=== PATIENT | female | born 1980 | race Two or more races ===

== ENCOUNTER 2023-05-15 19:11 | Emergency (ER) | payer OTHER, SELFPAY ==
--- NOTE | 2023-05-15 | ECG_ITS ---
Test Reason : CHEST PAIN Blood Pressure : / mmHG Vent. Rate : 075 BPM Atrial Rate : 075 BPM P-R Int : 146 ms QRS Dur : 074 ms QT Int : 394 ms P-R-T Axes : 047 013 029 degrees QTc Int : 439 ms Normal sinus rhythm Normal ECG No previous ECGs available Referred By: Generic ED Physician Electronically Signed By:KATHY MARRERO MD
[2023-05-15 19:20] VITALS: BP 124/67; PULSE 82; RESP 20; TEMP 36.4; O2SAT 98; BMI 26.6
[2023-05-15 20:26] LABS: Hematocrit 38.8 % (37.0-47.0); Hemoglobin 12.8 g/dl (12.0-16.0); Mean Corpuscular Hemoglobin 29.7 pg (27.0-33.0); Mean Platelet Volume 11.9 fL (9.4-12.3); Platelet Count 201 X10*3/uL (160-400); Red Blood Count 4.31 X10*6/uL (4.20-5.50); White Blood Count 7.9 X10*3/uL (4.8-10.8)
[2023-05-15 20:44] LABS: Alanine Aminotransferase 16 U/L (0-31); Albumin Level 3.9 g/dL (3.5-5.0); Alkaline Phosphatase 71 U/L (39-117); Anion Gap 12 (12-20); Aspartate Amino Transferase 18 U/L (5-31); Bilirubin Total 0.4 mg/dL (0.0-1.0); Blood Urea Nitrogen 13 mg/dL (9-16); Calcium 9.1 mg/dL (8.4-10.2); Carbon Dioxide 27 mmol/L (22-29); Chloride 106 mmol/L (96-108); Creatinine Clr Calc Pharmacy 90.1; Estimated Glomerular Filt Rate > 60; Glucose Random 95 mg/dL (60-115); Potassium 3.7 mmol/L (3.3-5.1); Sodium 141 mmol/L (135-145); Total Protein 7.1 g/dL (6.5-8.0)
[2023-05-15 20:51] LABS: Troponin-I High Sensitivity < 2.7 ng/L (<3.5-17.0)
[2023-05-15 21:19] LABS: Influenza A PCR NEGATIVE (Negative); Influenza B PCR NEGATIVE (Negative); Resp Syncy Virus RNA Qual PCR NEGATIVE (Negative); SARS COV2 PCR INHOUSE NEGATIVE (Negative)
[2023-05-15 21:21] VITALS: BP 125/73; PULSE 79; RESP 18; O2SAT 100
[2023-05-15 22:07] VITALS: BP 119/58; PULSE 61; RESP 17; O2SAT 98
--- NOTE | 2023-05-15 22:27 | ED_ITS ---
HPI - General Adult General Chief complaint: General Medical Stated complaint: runny nose, chest pain Time Seen by Provider: 05/15/23 22:19 Source: patient Mode of arrival: ambulatory Limitations: no limitations History of Present Illness HPI narrative: Patient with History of mild asthma complaining of running nose cough body aches for last 10 days no fever no chills no vomiting. No other family member sick Related Data Previous Rx's Medication Instructions Recorded albuterol sulfate 90 mcg/actuation 2 puff inhalation Q4-6H PRN 05/15/23 aerosol inhaler (ProAir HFA) shortness of breath or wheezing #8.5 grams amoxicillin 875 mg-potassium 1 tab PO BID #20 tabs 05/15/23 clavulanate 125 mg tablet prednisone 20 mg tablet 40 mg (2 x 20 mg) PO DAILY #10 tabs 05/15/23 Allergies Allergy/AdvReac Type Severity Reaction Status Date / Time No Known Allergies Allergy Verified 05/15/23 19:24 Review of Systems 2 Review of Systems: Yes all other systems are reviewed and are negative [facility] Social History Social History Smoked in Last 30 Days: No Use of substances other than those prescribed or required for medical reasons: No Advance Directives: No Advance Directives Information Provided: No Patient : No Physical Exam ED Vital Signs: Vital Signs - 24 hr 05/15/23 19:20 05/15/23 21:21 05/15/23 22:07 Temperature 97.5 F Pulse Rate 82 79 61 Respiratory Rate 20 18 17 Blood Pressure 124/67 125/73 119/58 L Pulse Oximetry 98 100 98 Oxygen Delivery Method Room Air Room Air Room Air BMI result Body Mass Index 26.6 Appearance: Alert. Oriented X3. No acute distress. ENT: Pharynx normal. Oral Mucosa moist frontal sinus tenderness Neck: Normal inspection. Neck supple. CVS: Normal heart rate and rhythm. Pulses normal. Respiratory: No respiratory distress. Equal air entry bilateral, bilateral prolonged expiration no crackle Abdomen: Soft and nontender. Skin: Skin warm and dry. Normal skin color. Normal skin turgor. Extremities: No lower extremity edema. No calf tenderness Neuro: Oriented X 3. Medications Administered Discontinued Medications Generic Name Dose Route Start Last Admin Trade Name Freq PRN Reason Stop Dose Admin Albuterol Sulfate 2 puff 05/15/23 23:16 05/15/23 23:34 Albuterol Sulfate 90 Mcg 8 Gm Inhaler INHALE 05/15/23 23:17 2 puff ONCE ONE Administration Amoxicillin/Clavulanate Potassium 875 mg 05/15/23 23:16 05/15/23 23:23 Amoxicillin/Potassium Clav 875 Mg Tablet PO 05/15/23 23:17 875 mg ONCE ONE Administration Prednisone 60 mg 05/15/23 23:16 05/15/23 23:22 Prednisone 20 Mg Tablet PO 05/15/23 23:17 60 mg ONCE ONE Administration Medical Decision Making Differential Diagnosis Differential Diagnoses: The differential diagnosis associated with the presentation includes Sinusitis/bronchitis/pneumonia/asthma Admission/Observation Consideration of admission/observation: Escalation of care including admission/observation considered Lab Data MDM Lab Attestation statement: I reviewed the patient's lab results. 05/15/23 20:15 05/15/23 20:15 Labs: Lab Results 05/15/23 Range/Units 20:15 WBC 7.9 (4.8-10.8) X10*3/uL RBC 4.31 (4.20-5.50) X10*6/uL Hgb 12.8 (12.0-16.0) g/dl Hct 38.8 (37.0-47.0) % MCV 90.0 (80.0-98.0) fL MCH 29.7 (27.0-33.0) pg MCHC 33.0 (31.0-35.0) g/dl RDW 13.0 (11.0-16.0) % Plt Count 201 (160-400) X10*3/uL MPV 11.9 (9.4-12.3) fL Absolute Nucleated RBC 0.000 (0.0-0.012) X10*3/uL Nucleated RBC % (auto) 0.0 (0.0-0.2) /100WBC Sodium 141 (135-145) mmol/L Potassium 3.7 (3.3-5.1) mmol/L Chloride 106 (96-108) mmol/L Carbon Dioxide 27 (22-29) mmol/L Anion Gap 12 (12-20) BUN 13 (9-16) mg/dL Creatinine 0.79 (0.5-1.4) mg/dL Estim Creat Clear Calc 90.1 Estimated GFR > 60 Random Glucose 95 (60-115) mg/dL Calcium 9.1 (8.4-10.2) mg/dL Total Bilirubin 0.4 (0.0-1.0) mg/dL AST 18 (5-31) U/L ALT 16 (0-31) U/L Alkaline Phosphatase 71 (39-117) U/L Troponin I High Sens < 2.7 (<3.5-17.0) ng/L Total Protein 7.1 (6.5-8.0) g/dL Albumin 3.9 (3.5-5.0) g/dL Influenza Type A (PCR) NEGATIVE (Negative) Influenza Type B (PCR) NEGATIVE (Negative) RSV RNA Qual (PCR) NEGATIVE (Negative) SARS-CoV-2 RNA (RT-PCR) NEGATIVE (Negative) Discharge Plan Discharge Clinical Impression: Acute bronchitis Patient Disposition: Home, Self-Care Instructions: Acute Bronchitis (ED) Additional Instructions: Take antibiotic As prescribed Prednisone as prescribed Use albuterol inhaler 2 puffs every 4-6 hours as needed Follow-up with PCP if not better Prescriptions: New prednisone 20 mg tablet 40 mg PO DAILY Qty: 10 0RF albuterol sulfate [ProAir HFA] 90 mcg/actuation HFA aerosol inhaler 2 puff inhalation Q4-6H PRN (Reason: shortness of breath or wheezing) Qty: 8.5 0RF amoxicillin-pot clavulanate 875-125 mg tablet 1 tab PO BID Qty: 20 0RF Interventions: ED Discharge Assessment Last Done: 05/15/23 23:38
[2023-05-15] MEDS: predniSONE 20 MG TABLET 60 MG PO (23:22)
[2023-05-15] MEDS: Amoxicillin/Potassium Clav 875 MG TABLET PO (23:23)
[2023-05-15] MEDS: Albuterol Sulfate 90 MCG 8 GM INHALER 2 PUFF INHALE (23:34)
[2023-05-15 23:36] VITALS: BP 124/70; PULSE 82; RESP 14; O2SAT 98
== END 2023-05-15 23:42 | disposition home or self-care (01) ==
PROVIDERS: Emergency Provider Internal Medicine
DX: J20.9 Acute bronchitis, unspecified (principal); R09.89 Other specified symptoms and signs involving the circulatory and respiratory systems; M79.10 Myalgia, unspecified site; R05.9 Cough, unspecified; Z20.822 Contact with and (suspected) exposure to COVID-19; Z20.828 Contact with and (suspected) exposure to other viral communicable diseases; Z79.899 Other long term (current) drug therapy
CPT/HCPCS: 0241U; 36415; 80053; 84484; 85027; 93005; 99284

== ENCOUNTER 2024-09-14 21:11 | Emergency (ER) | payer OTHER, SELFPAY ==
[2024-09-14 21:45] VITALS: BP 122/73; PULSE 60; RESP 16; TEMP 36.7; O2SAT 99; BMI 33.2
[2024-09-14 22:49] LABS: Influenza A PCR NEGATIVE (Negative); Influenza B PCR NEGATIVE (Negative); Resp Syncy Virus RNA Qual PCR NEGATIVE (Negative); SARS COV2 PCR INHOUSE NEGATIVE (Negative)
[2024-09-15 03:13] VITALS: BP 126/62; PULSE 68; RESP 17; TEMP 36.7; O2SAT 97
--- NOTE | 2024-09-15 03:34 | ED.EAR ---
HPI - Ear Problem General Chief complaint: Ear Problems Stated complaint: pain started lft ear now in the right Time Seen by Provider: 09/15/24 03:18 Source: patient Mode of arrival: ambulatory Limitations: no limitations History of Present Illness ED Provider: HPI Narrative: patient's history of migraine headaches complaining of pain in the bilateral ear more on the right side for last 6 days no ear discharge no trauma no ear discharge also does have a migraine headache which is going on for last 3 days mostly frontal area Related Data Previous Rx's ?Medication ?Instructions ?Recorded albuterol sulfate 90 mcg/actuation 2 puff inhalation Q4-6H PRN 05/15/23 aerosol inhaler (ProAir HFA) shortness of breath or wheezing #8.5 grams amoxicillin 875 mg-potassium 1 tab PO BID #20 tabs 05/15/23 clavulanate 125 mg tablet prednisone 20 mg tablet 40 mg (2 x 20 mg) PO DAILY #10 tabs 05/15/23 amoxicillin 875 mg-potassium 1 tab PO BID #20 tabs 09/15/24 clavulanate 125 mg tablet sxcbnlusku-tvglvzrwrnpzc-ztxtirjm 1 tab PO Q6H PRN haeadace #20 tabs 09/15/24 50 mg-325 mg-40 mg tablet Allergies Allergy/AdvReac Type Severity Reaction Status Date / Time bacitracin AdvReac Rash Verified 09/14/24 21:46 Review of Systems Review of Systems: Yes all other systems are reviewed and are negative PMFSH Social History Social History Advance Directives: No Advance Directives Information Provided: No Do you have a plan to hurt others: No Plan Physical Exam Vital Signs: Vital Signs: Last Vital Signs Temp 98.1 F 09/15/24 04:19 Pulse 68 09/15/24 04:19 Resp 17 09/15/24 04:19 BP 126/62 09/15/24 04:19 Pulse Ox 97 09/15/24 04:19 O2 Del Method Room Air 09/15/24 04:19 BMI result Body Mass Index 33.2 Appearance: Alert. Oriented X3. No acute distress. Eyes: PERRLA, No Nystagmus ENT: Pharynx normal. Oral Mucosa moist right ear tympanic membrane inflamed no discharge in the EAC left has wax tympanic membrane normal Neck: Normal inspection. Neck supple. CVS: Normal heart rate and rhythm. Pulses normal. Respiratory: No respiratory distress. Equal air entry bilateral, no wheezing/rales/rhonchi Abdomen: Soft and nontender. Bowel sounds are present, no mass palpable, no CVA tenderness Skin: Skin warm and dry. Normal skin color. Normal skin turgor. Extremities: No lower extremity edema. No calf tenderness Neuro: Oriented X 3. No motor deficit. No sensory deficit.No cerebellar signs , cranial nerves II-XII intact Medications Administered Discontinued Medications Generic Name Dose Route Start Last Admin Trade Name Freq PRN Reason Stop Dose Admin Acetaminophen/Butalbital/Caffeine 1 tab 09/15/24 03:34 09/15/24 04:15 Butalb/Acetamin/Caff 50/325/40 Tablet PO 09/15/24 03:35 1 tab ONCE ONE Administration Amoxicillin/Clavulanate Potassium 875 mg 09/15/24 03:34 09/15/24 04:15 Amoxicillin/Potassium Clav 875 Mg Tablet PO 09/15/24 03:35 875 mg ONCE ONE Administration Medical Decision Making Medical Decision Making [facility] Narrative: patient's otitis media with migraine headache will prescribe antibiotics and Fioricet Lab Data [facility] Lab Attestation statement: I reviewed the patient's lab results. Labs: Lab Results 09/14/24 Range/Units 21:55 Influenza Type A (PCR) NEGATIVE (Negative) Influenza Type B (PCR) NEGATIVE (Negative) RSV RNA Qual (PCR) NEGATIVE (Negative) SARS-CoV-2 RNA (RT-PCR) NEGATIVE (Negative) Discharge Plan Discharge Clinical Impression: Otitis media, Migraine Patient Disposition: Home, Self-Care Instructions: Migraine Headache (ED), Ear Infection (ED) Additional Instructions: Take antibiotics as prescribed Pain medicine as prescribed for migraine headache? Follow with ENT if not better Prescriptions: New ghoxsacmpi-loqqrozhqazjn-kwrv 50-325-40 mg tablet 1 tab PO Q6H PRN (Reason: haeadace) Qty: 20 0RF amoxicillin-pot clavulanate 875-125 mg tablet 1 tab PO BID Qty: 20 0RF No Action prednisone 20 mg tablet 40 mg PO DAILY Qty: 10 0RF albuterol sulfate [ProAir HFA] 90 mcg/actuation HFA aerosol inhaler 2 puff inhalation Q4-6H PRN (Reason: shortness of breath or wheezing) Qty: 8.5 0RF amoxicillin-pot clavulanate 875-125 mg tablet 1 tab PO BID Qty: 20 0RF Referrals: Carlito Llanes [Physician] - 2 weeks Interventions: ED Discharge Assessment Last Done: 09/15/24 04:19 Discharge Date/Time: 09/15/24 04:22 Print Language: Arabic
[2024-09-15] MEDS: Butalb/Acetamin/Caff 50/325/40 TABLET 1 TAB PO (04:15)
[2024-09-15] MEDS: Amoxicillin/Potassium Clav 875 MG TABLET PO (04:15)
[2024-09-15 04:19] VITALS: BP 126/62; PULSE 68; RESP 17; TEMP 36.7; O2SAT 97
== END 2024-09-15 04:22 | disposition home or self-care (01) ==
PROVIDERS: Emergency Provider Internal Medicine
DX: G43.909 Migraine, unspecified, not intractable, without status migrainosus (principal); H66.91 Otitis media, unspecified, right ear; Z03.818 Encounter for observation for suspected exposure to other biological agents ruled out; Z79.899 Other long term (current) drug therapy
CPT/HCPCS: 0241U; 99283